=== PATIENT | male | born 1975 ===

== ENCOUNTER 2019-07-31 21:39 | Emergency (ER) | payer SELFPAY ==
[2019-07-31 21:49] VITALS: BP 112/83
[2019-07-31] MEDS ORDERED: BACTRIM DS PO STA (23:05)
--- NOTE | 2019-07-31 23:05 | Emergency Department Report ---
- General Chief Complaint: Puncture Wound Stated Complaint: SPLINTER IN FINGER Time Seen by Provider: 07/31/19 22:28 Source: patient Mode of arrival: Ambulatory Limitations: No Limitations - History of Present Illness Initial Comments: Splinter the right fifth digit a day and a half ago unable to remove the presents emergency department for assistance for removal. Patient has history of diabetes and seeks further evaluation and treatment options. Extremity Location: Right: Hand Place: home Context: accidental Associated Symptoms: none - Related Data Previous Rx's Medication Instructions Recorded Last Taken Type Sulfamethoxazole/Trimethoprim 1 each PO BID #14 tablet 07/31/19 Unknown Rx [Bactrim 400-80 mg Tablet] cephALEXin [Keflex] 500 mg PO Q8HR #30 cap 07/31/19 Unknown Rx Allergies Allergy/AdvReac Type Severity Reaction Status Date / Time No Known Allergies Allergy Unverified 07/31/19 21:47 ED Review of Systems ROS: Stated complaint: SPLINTER IN FINGER Other details as noted in HPI Comment: All other systems reviewed and negative ED Past Medical Hx - Past Medical History Previous Medical History?: Yes Hx Diabetes: Yes - Surgical History Past Surgical History?: Yes Additional Surgical History: right ankle - Social History Smoking Status: Never Smoker - Medications Home Medications: Home Medications Medication Instructions Recorded Confirmed Last Taken Type Sulfamethoxazole/Trimethoprim 1 each PO BID #14 tablet 07/31/19 Unknown Rx [Bactrim 400-80 mg Tablet] cephALEXin [Keflex] 500 mg PO Q8HR #30 cap 07/31/19 Unknown Rx ED Physical Exam - General Limitations: No Limitations General appearance: alert, in no apparent distress - Head Head exam: Present: atraumatic, normocephalic - Eye Eye exam: Present: normal appearance - ENT ENT exam: Present: mucous membranes moist - Neck Neck exam: Present: normal inspection - Respiratory Respiratory exam: Present: normal lung sounds bilaterally. Absent: respiratory distress - Cardiovascular Cardiovascular Exam: Present: regular rate, normal rhythm. Absent: systolic murmur, diastolic murmur, rubs, gallop - GI/Abdominal GI/Abdominal exam: Present: soft, normal bowel sounds - Rectal Rectal exam: Present: deferred - Extremities Exam Extremities exam: Present: normal inspection, other (explanted to the right fifth digit with some local cellulitis. No discharge noted. No splinter hemorrhaging. Pulses 2+. No lymphangitis. Tenderness with palpation.) - Back Exam Back exam: Present: normal inspection - Neurological Exam Neurological exam: Present: alert, oriented X3 - Psychiatric Psychiatric exam: Present: normal affect, normal mood - Skin Skin exam: Present: warm, dry, intact, normal color. Absent: rash ED Course Vital Signs 07/31/19 21:47 Temperature 98.1 F Pulse Rate 57 L Respiratory 18 Rate Blood Pressure 112/83 O2 Sat by Pulse 100 Oximetry - Procedure Description Procedures done: #15 blade was used to excise the epidermis and a para sharp mosquito pickups were used to remove the splinter with no complications. There are splinter was removed in its entirety Critical care attestation.: If time is entered above; I have spent that time in minutes in the direct care of this critically ill patient, excluding procedure time. ED Disposition Clinical Impression: Splinter in skin, Cellulitis, finger Disposition: [id number] TO HOME OR SELFCARE Is pt being admited?: No Does the pt Need Aspirin: No Condition: Stable Instructions: Cellulitis (ED) Additional Instructions: Please follow up for wound reevaluation in 48 hours Prescriptions: Sulfamethoxazole/Trimethoprim [Bactrim 400-80 mg Tablet] 1 each PO BID #14 tablet cephALEXin [Keflex] 500 mg PO Q8HR #30 cap Referrals: [facility] [Provider Group] - 3-5 Days
== END 2019-07-31 22:55 | disposition home or self-care (01) ==
LOC: ED 21:39
DX: L03.011 Cellulitis of right finger (principal)
CPT/HCPCS: 99281